=== PATIENT | male | born 1950 | race African-American/Black ===

== ENCOUNTER → 2024-12-23 | Day surgery (SDC) | payer MEDICARE ==
[2024-12-21 13:17] LABS: BASOPHILS % 0.0 % (0.0-1.0); EOSINOPHILS % 0.7 % (0.0-6.0); LYMPHOCYTES % 28.5 % (18.0-39.1); MONOCYTES % 12.9 % (4.4-11.3); NEUTROPHILS % 57.2 % (38.7-80.0); RED CELL DISTRIBUTION WIDTH 15.9 % (11.7-14.4)
[2024-12-21 13:42] LABS: EST GLOMERULAR FILTRATION RATE 89.0 ML/MIN (>=60)
[~2024-12-23] MED LIST: BOTULINUM TOXIN TYPE A 100 UNIT VIAL IM ONE; FENTANYL CITRATE/PF 100MCG/2 ML INJ ONE; FERROUS SULFAT324 MG PO; FUROSEMIDE INJ 10 MG/ML 4 ML VIAL ONE; KETAMINE HCL INJ 50 MG/ML 10 ML VIAL ONE; LIDOCAINE HCL 2% LOCAL INJ 5 ML SDV VIAL INJ ONE; LYRICA150 MG PO; MIDAZOLAM HCL 2 MG/2 ML VIAL ONE; OXYCODONE HCL20 M1 PO; PROPOFOL IV EMULSION 10 MG/ML 20 ML VIAL ONE; TIZANIDINE HCL4 M1 PO; TRAZODONE HCL50 MG PO; TYLENOL EXTRA500 MG PO
[2024-12-23] MEDS: SODIUM CHLORIDE 0.9% 1000ML 1,000 ML ONE (05:52)
[2024-12-23] MEDS: PHENAZOPYRIDINE HCL 100 MG TAB ONE (09:15)
[2024-12-23 10:00] VITALS: BP 143/92; PULSE 59; RESP 16; O2SAT 93
== END | disposition home or self-care (01) ==
LOC: OR 05:12
PROVIDERS: ATTEND Urology
DX: N39.41 Urge incontinence (principal); N40.0 Benign prostatic hyperplasia without lower urinary tract symptoms; N32.89 Other specified disorders of bladder; Z96.0 Presence of urogenital implants; Z88.2 Allergy status to sulfonamides; Z88.1 Allergy status to other antibiotic agents; M06.9 Rheumatoid arthritis, unspecified; Z01.810 Encounter for preprocedural cardiovascular examination; Z01.812 Encounter for preprocedural laboratory examination; Z01.818 Encounter for other preprocedural examination; Z79.899 Other long term (current) drug therapy; Z85.89 Personal history of malignant neoplasm of other organs and systems; Z92.3 Personal history of irradiation; Z98.1 Arthrodesis status
CPT/HCPCS: 36415; 52005; 52287; 71046 ×2; 74420; 80048; 85025; 87086; 93005; C1758; J0587; J2003; J2250; J2704; J3010; J7030; J1938